=== PATIENT | female | born 1995 | race American Indian/Alaskan Native ===

== ENCOUNTER 2022-03-02 09:27 | Emergency (ER) | payer OTHER ==
[2022-03-02 09:52] VITALS: BP 90/45
--- NOTE | 2022-03-02 10:21 | Emergency Department Report ---
ED Rash HPI - HPI Chief Complaint: Urogenital-Female Stated Complaint: VAGINAL REDNESS Time Seen by Provider: 03/02/22 10:20 Location: Other Suspected Cause: Unknown Rash Symptoms: Yes Itching, No Facial Swelling, No Tongue/Oral Swelling, No Breathing Difficulties, No Choking Sensation, No Wheezing/Dyspnea, No Peeling, No Blistering, No Fever, No Lightheaded, No Malaise, No Myalgias Severity: mild Other History: 26 YO COMES TO ER WITH REDNESS IN GROIN FOLDS. NO VAG D/C. NOT SEXUALLY ACTIVE. NO FEVER. NO DYRURIA. NO FEVER OR CHILLS ED Review of Systems ROS: Stated complaint: VAGINAL REDNESS Other details as noted in HPI Comment: All other systems reviewed and negative ED Past Medical Hx - Past Medical History Previous Medical History?: No - Surgical History Past Surgical History?: No - Family History Family history: no significant - Social History Smoking Status: Never Smoker Substance Use Type: None Rash Exam - Exam General: Vital signs noted. No distress. Alert and acting appropriately. HEENT: No Periorbital Edema, No Conjuctival Injection, No Chemosis, No Perioral Edema, No Tongue Edema, No Uvular Edema, No Compromised Airway, No Drooling Lungs: Yes Good Air Exchange (Normal Breath Sounds), No Wheezes, No Ronchi, No Stridor, No Cough, No Labored Respirations, No Retractions, No Use of Accessory Muscles, No Other Abnormal Lung Sounds Heart: Yes Regular, No Murmur Skin: Yes Other Other: Positive: Abdomen Normal, Neurologic Normal, Musculoskeletal Normal ED Course Vital Signs 03/02/22 09:51 Temperature 98.8 F Pulse Rate 83 Respiratory 20 Rate Blood Pressure 90/45 [Right] O2 Sat by Pulse 100 Oximetry ED Medical Decision Making - Medical Decision Making Vital Signs 03/02/22 03/02/22 03/02/22 09:51 10:25 10:28 Temperature 98.8 F 98.9 F Pulse Rate 83 Respiratory 20 Rate Blood Pressure 90/45 [Right] O2 Sat by Pulse 100 98 Oximetry Vital Signs 03/02/22 03/02/22 03/02/22 09:51 10:25 10:28 Temperature 98.8 F 98.9 F Pulse Rate 83 Respiratory 20 Rate Blood Pressure 90/45 [Right] O2 Sat by Pulse 100 98 Oximetry REDNESS IN GROIN FOLDS. NO LESIONS. NO DRAINAGE. NO FEVER. NO DISCHARGE NO DYSURIA NO FEVER NO CVA TENDERNESS PT WILL TRY TO ISOLATE IRRITANT DID RECENTLY SHAVE DC HOME WITH DC PLAN OF CARE INCLUDING DIET, MEDS, ACTIVITY AND FOLLOW UP. SHE VERBALIZES UNDERSTANDING OF PLAN OF CARE. - Differential Diagnosis STD/VAGINTIS Critical care attestation.: If time is entered above; I have spent that time in minutes in the direct care of this critically ill patient, excluding procedure time. ED Disposition Clinical Impression: Skin irritation Disposition: 01 HOME / SELF CARE / HOMELESS Is pt being admited?: No Does the pt Need Aspirin: No Condition: Stable Instructions: Contact Dermatitis Additional Instructions: AVOID IRRITANTS LIKE TIDE/FRAGRANT SPRAYS OR POWDER/DOUCHING/VAGINAL CREAMS WEAR COTTON UNDERGARMENTS EAT A LOT OF YOGURT AND DRINK BUTTERMILK FOLLOW UP WITH OB AND OR PCP IF PERSISTS REFERRALS BELOW Referrals: MIKEL FRANCO MD [Primary Care Provider] - 3-5 Days FEDERICA GARCIA MD [Staff Physician] - 3-5 Days Forms: Work/School Release Form(ED) Time of Disposition: 10:21
== END 2022-03-02 10:56 | disposition home or self-care (01) ==
LOC: ED 09:27
DX: R21 Rash and other nonspecific skin eruption (principal)
CPT/HCPCS: 99282